=== PATIENT | male | born 1965 | race Caucasian/White ===

== ENCOUNTER 2019-01-10 11:14 | Emergency (ER) | payer OTHER ==
[~2019-01-10] VITALS: Ht 170.2 cm; Wt 113.4 kg
[~2019-01-10 11:14] MED LIST: CHOL10002 PO; CYCL10 PO; DULO30 PO; HYDACE5 PO; MULVITMIND PO; OMEP20ER PO; SENN187 PO; SIMV10 PO
[2019-01-10] MEDS ORDERED: GABA600 PO ×2 (12:44→12:45)
[2019-01-10] MEDS ORDERED: METO25ER PO (12:44)
[2019-01-10] MEDS ORDERED: VENL150ER PO (12:45)
[2019-01-10] MEDS ORDERED: DIVA500EC PO (12:46)
[2019-01-10] MEDS ORDERED: QUET100 PO (12:47)
[2019-01-10] MEDS ORDERED: IBUP800 PO (13:01)
== END 2019-01-10 13:10 | disposition home or self-care (01) ==
LOC: ER 11:14
DX: S90.31XA Contusion of right foot, initial encounter (principal); W20.8XXA Other cause of strike by thrown, projected or falling object, initial encounter; Z79.899 Other long term (current) drug therapy; Z79.891 Long term (current) use of opiate analgesic; K21.9 Gastro-esophageal reflux disease without esophagitis; F17.200 Nicotine dependence, unspecified, uncomplicated
CPT/HCPCS: 73630; 99283-25

== ENCOUNTER → 2021-12-29 | Outpatient (CLI) | payer MEDICARE ==
[~2021-12-29] MED LIST changes: +DIVA500EC PO; +GABA600 PO; +IBUP800 PO; +METO25ER PO; +QUET100 PO; +VENL150ER PO
[2021-12-29 15:24] LABS: BASOPHILS ABSOLUTE AUTO 0.06 K/mm3 (0.00-0.23); BASOPHILS PERCENT AUTO 1 % (0-2); EOSINOPHILS PERCENT AUTO 3 % (0-6); Hematocrit 42.8 % (37.0-53.0); Hemoglobin 13.9 g/dL (13.5-17.5); IMMATURE GRAN ABSOLUTE AUTO 0.23 K/mm3 (0.00-0.10); IMMATURE GRAN PERCENT AUTO 3 % (0-1); LYMPHOCYTES ABSOLUTE AUTO 1.47 K/mm3 (0.84-5.20); LYMPHOCYTES PERCENT AUTO 21 % (21-46); MONOCYTES ABSOLUTE AUTO 0.82 K/mm3 (0.16-1.47); MONOCYTES PERCENT AUTO 12 % (4-13); Mean Corpuscular HGB 32.3 pg (26.0-34.0); Mean Corpuscular HGB Conc 32.5 g/dL (31.5-36.5); Mean Corpuscular Volume 99 fL (80-100); Mean Platelet Volume 10.6 fL (9.1-12.4); NEUTROPHILS ABSOLUTE AUTO 4.28 K/mm3 (1.96-9.15); NEUTROPHILS PERCENT AUTO 61 % (41-73); Platelet Count 155 K/mm3 (150-400); RDW Coefficient Variation 12.3 % (11.7-14.2); Red Blood Cell Count 4.31 M/mm3 (4.30-5.90); White Blood Cell Count 7.06 K/mm3 (4.00-11.30)
== END | disposition home or self-care (01) ==
LOC: LAB SHORT 10:52 → LAB 10:52
PROVIDERS: Internal Medicine Hematology & Oncology
DX: E53.8 Deficiency of other specified B group vitamins (principal); D72.829 Elevated white blood cell count, unspecified
CPT/HCPCS: 82607; 82746; 85025; 85060

== ENCOUNTER → 2022-01-04 | Outpatient (CLI) | payer MEDICARE ==
[2022-01-04 16:23] LABS: BASOPHILS ABSOLUTE AUTO 0.08 K/mm3 (0.00-0.23); BASOPHILS PERCENT AUTO 1 % (0-2); EOSINOPHILS PERCENT AUTO 2 % (0-6); Hematocrit 44.7 % (37.0-53.0); Hemoglobin 14.8 g/dL (13.5-17.5); IMMATURE GRAN ABSOLUTE AUTO 0.19 K/mm3 (0.00-0.10); IMMATURE GRAN PERCENT AUTO 2 % (0-1); LYMPHOCYTES ABSOLUTE AUTO 1.61 K/mm3 (0.84-5.20); LYMPHOCYTES PERCENT AUTO 18 % (21-46); MONOCYTES ABSOLUTE AUTO 0.93 K/mm3 (0.16-1.47); MONOCYTES PERCENT AUTO 10 % (4-13); Mean Corpuscular HGB 32.8 pg (26.0-34.0); Mean Corpuscular HGB Conc 33.1 g/dL (31.5-36.5); Mean Corpuscular Volume 99 fL (80-100); Mean Platelet Volume 10.9 fL (9.1-12.4); NEUTROPHILS ABSOLUTE AUTO 5.96 K/mm3 (1.96-9.15); NEUTROPHILS PERCENT AUTO 67 % (41-73); Platelet Count 166 K/mm3 (150-400); RDW Coefficient Variation 12.4 % (11.7-14.2); RDW Standard Deviation 45.7 fL (35.1-46.3); Red Blood Cell Count 4.51 M/mm3 (4.30-5.90); White Blood Cell Count 8.97 K/mm3 (4.00-11.30)
== END | disposition home or self-care (01) ==
LOC: LAB SHORT 12:23
PROVIDERS: Internal Medicine Hematology & Oncology
DX: D72.829 Elevated white blood cell count, unspecified (principal)
CPT/HCPCS: 85025; 85060

== ENCOUNTER 2023-03-12 14:20 | Emergency (ER) | payer OTHER ==
[~2023-03-12] VITALS: Ht 190.5 cm; Wt 108.9 kg
[2023-03-12 14:43] VITALS: BP 174/113
[2023-03-12] MEDS ORDERED: Floxin10 ML RIGHTEYE (17:55)
== END 2023-03-12 18:29 | disposition home or self-care (01) ==
LOC: ER 14:20
DX: T15.01XA Foreign body in cornea, right eye, initial encounter (principal); X58.XXXA Exposure to other specified factors, initial encounter; K21.9 Gastro-esophageal reflux disease without esophagitis; F17.200 Nicotine dependence, unspecified, uncomplicated; Z79.899 Other long term (current) drug therapy
CPT/HCPCS: 70480; A9270